=== PATIENT | male | born 1975 ===

== ENCOUNTER 2018-03-18 07:42 | Emergency (ER) | payer OTHER, BC ==
[2018-03-18 07:51] VITALS: BMI 26.5
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
--- NOTE | 2018-03-18 08:54 | CT ---
PROCEDURE: CT HEAD WITHOUT CONTRAST. HISTORY: headache COMPARISON: None available. TECHNIQUE: Axial computed tomography images were obtained through the head/brain without intravenous contrast. Radiation dose: Total exam DLP = 874 mGy-cm. This CT exam was performed using one or more of the following dose reduction techniques: Automated exposure control, adjustment of the mA and/or kV according to patient size, and/or use of iterative reconstruction technique. FINDINGS: HEMORRHAGE: No intracranial hemorrhage. BRAIN: No mass effect or edema. No atrophy or chronic microvascular ischemic changes. VENTRICLES: Unremarkable. No hydrocephalus. CALVARIUM: Unremarkable. PARANASAL SINUSES: Bilateral mild mucosal thickening -ethmoidal air cells was small left lateral sphenoid sinus recesses retention cyst MASTOID AIR CELLS: Unremarkable as visualized. No inflammatory changes. OTHER FINDINGS: None. IMPRESSION: No intracranial hemorrhage or mass effect. Mild ethmoidal sinus inflammatory changes. Small left sphenoid air cell recess retention cyst -6 mm
[2018-03-18 09:05] LABS: BASO % 0.4 % (0.0-2.0); EOS # 0.1 K/uL (0.0-0.7); EOS % 1.5 % (0.0-4.0); HEMOGLOBIN 16.2 g/dL (12.0-18.0); LYMPH # 1.5 K/uL (1.0-4.3); LYMPH % 29.2 % (20.0-40.0); MEAN CORPUSCULAR HEMOGLOBIN 30.7 pg (27.0-31.0); MEAN CORPUSCULAR HGB CONC 34.1 g/dL (33.0-37.0); MEAN PLATELET VOLUME 7.6 fl (7.2-11.7); MONO # 0.3 K/uL (0.0-0.8); MONO % 6.6 % (0.0-10.0); NEUT # 3.2 K/uL (1.8-7.0); NEUT % 62.3 % (50.0-75.0); NRBC % 0.1 % (0.0-0.0); RBC 5.29 Mil/uL (4.40-5.90); RED CELL DISTRIBUTION WIDTH 13.7 % (11.5-14.5); WHITE BLOOD COUNT 5.1 K/uL (4.8-10.8)
--- NOTE | 2018-03-18 09:09 | RAD ---
PROCEDURE: Left Hand Radiographs. HISTORY: pain COMPARISON: None. FINDINGS: BONES: Ossifications project -towards the ulnar aspect of the 1st metacarpal phalangeal joint - minimally displaced avulsive fracture fragments -donor site 1st proximal phalanx inferred. Overlying soft tissues between the 1st and 2nd digits altered -trauma here inferred. No history of trauma provided simply pain. Clinical correlation is essential. The avulsed fracture dominant fragment extends into the 1st metacarpal joint JOINTS: No significant appearing arthrosis. No dislocation. SOFT TISSUES: Normal. OTHER FINDINGS: None. IMPRESSION: Avulsed fracture fragments as detailed above. Comments: Study tagged for PA review. No preliminary impression available from ER at this time
--- NOTE | 2018-03-18 09:20 | RAD ---
PROCEDURE: Right Knee Radiographs. HISTORY: pain COMPARISON: None. FINDINGS: BONES: No fracture appreciated. Lateral patellar spurring JOINTS: Mild arthrosis lateral patellofemoral compartment. JOINT EFFUSION: None. OTHER FINDINGS: On sunrise view, lateral soft tissue mottled density -compatible with trauma IMPRESSION: No fracture or dislocation is suggested. Mild soft tissue swelling in the area of interest is noted.
[2018-03-18 09:23] LABS: PARTIAL THROMBOPLASTIN TIME 27.3 Seconds (25.6-37.1)
--- NOTE | 2018-03-18 09:24 | RAD ---
HISTORY: dyspnea COMPARISON: No prior. TECHNIQUE: Chest PA and lateral FINDINGS: LUNGS: Faint patchy opacity right upper lung zone noted and significance indeterminate small trace patchy infiltrate here not excluded. Summation of structures given the overlapping right 3rd and posterior right 5th ribs are another consideration with a crossing bronchovascular markings here. No comparisons available to assess stability if clinically indicated, noncontrast CT may elucidate. The left infrahilar bronchovascular markings appear top normal PLEURA: No significant pleural effusion identified. No pneumothorax apparent. CARDIOVASCULAR: Normal. OSSEOUS STRUCTURES: Mild thoracic spondylosis VISUALIZED UPPER ABDOMEN: Normal. OTHER FINDINGS: None. IMPRESSION: No definitive consolidation appreciated. Probable summation of soft tissues in the right upper lung zone ;however, subtle small parenchymal pulmonary pathology here cannot be excluded. To resolve, if clinically indicated, a noncontrast CT chest should suffice
[2018-03-18 09:25] LABS: BLOOD UREA NITROGEN 18 mg/dl (9-20); CALCIUM 9.2 mg/dL (8.4-10.2); GFR AFRICAN-AMERICAN > 60; GFR NON-AFRICAN AMERICAN > 60
[2018-03-18] MEDS ORDERED: Iohexol 300 100 ML IJ ONE (09:35)
--- NOTE | 2018-03-18 09:44 | CARD ---
APPROVED REPORT EKG Measurement Heart [id number] <Conclusion> Normal sinus rhythm Normal ECG
--- NOTE | 2018-03-18 09:50 | CT ---
PROCEDURE: CT Cervical Spine without contrast HISTORY: neck pain COMPARISON: None available. TECHNIQUE: Axial computed tomography images were obtained of the cervical spine without the use of intravenous contrast. Coronal and sagittal reformatted images were created and reviewed. Radiation dose: Total exam DLP = 423 mGy-cm. This CT exam was performed using one or more of the following dose reduction techniques: Automated exposure control, adjustment of the mA and/or kV according to patient size, and/or use of iterative reconstruction technique. FINDINGS: VERTEBRAE: Posterior central C4 vertebral body osteophyte encroaching on the ventral subarachnoid space. No gross thecal sac impingement appreciated no spinal stenosis DISCS/SPINAL CANAL/NEURAL FORAMINA: C4-C5 posterior disc bulging with central posterior osteophyte as above encroaching on the ventral subarachnoid space. No spinal stenosis here. C5-C6: Marked disc space narrowing, marked diffuse endplate osseous ridging and blending uncovertebral hypertrophic osteoarthrosis left greater than right. A separate 6 x 3 mm bony density -ossific debris or old fracture of a osteophyte here encroach on the left lateral recess is suggested (axial series 2, image 56, coronal series 601, image 34 and sagittal series 602, image 65. Right lateral to this, there is lobulated posterior disc margin -mixed posterior disc bulging with superimposed slightly left paracentral disc herniation/disc protrusion -adding to the encroachment on the spinal canal is noted. The separate bony density results in moderate to severe left lateral recess stenosis. The prominent disc margin/left paracentral disc herniation/ disc protrusion compatible with minimal-mild central stenosis. The endplate ridging at this level further encroaches on the left proximal foramen (axial series 2, image 55). There is prominent anterior spondylotic ridging at this level as well C6-7: Right uncovertebral hypertrophy endplate ridging encroaches on the right foramen (axial series 2, image 61). Mild concomitant right apophyseal joint hypertrophy noted At the cranial vertebral junction, the C1-2, C2-3 and C3-4 and the C 7-1 levels no additional pathology noted. No acute fractures suspect PARASPINAL SOFT TISSUES: Unremarkable. OTHER FINDINGS: None. IMPRESSION: Extensive pathologies -degenerative basis - centered to the C5-6 level as referenced above. This primarily resulting in left lateral recess and left proximal foraminal stenoses. No acute fractures noted
--- NOTE | 2018-03-18 10:06 | CT ---
PROCEDURE: CT Chest with contrast HISTORY: trauma COMPARISON: None. TECHNIQUE: Contiguous axial images were obtained through the chest with intravenous contrast enhancement. Sagittal and coronal reconstructions were performed. IV contrast: 95 cc of Omnipaque 300 followed by saline 40 cc Radiation dose (DLP): 449 mGy-cm. This CT exam was performed using one or more of the following dose reduction techniques: Automated exposure control, adjustment of the mA and/or kV according to patient size, and/or use of iterative reconstruction technique. FINDINGS: LUNGS: Clear lungs. Visualized airway clear. The prior indeterminate small opacity right upper lung zone the current chest x-ray is compatible with a prior technical summation of soft tissue appearance. On this clarifying CT no underlying pulmonary parenchymal pathology here or elsewhere suggested. MEDIASTINUM: Unremarkable thoracic aorta. No aneurysm or dissection. Normal sized heart. Main pulmonary artery unremarkable. No vascular congestion. No lymphadenopathy. PLEURA: No pleural fluid. No pneumothorax. BONES: No fracture. No destructive lesion. Inferior thoracic incidental spondylosis UPPER ABDOMEN: Grossly unremarkable. OTHER FINDINGS: None. IMPRESSION: No pulmonary pathology -as discussed above No fracture or pneumothorax seen.
[2018-03-18 11:32] VITALS: BP 144/65; PULSE 89; RESP 16; TEMP 97.6; O2SAT 96
== END 2018-03-18 11:32 | disposition home or self-care (01) ==
LOC: H.ER 07:42
DX: S29.9XXA Unspecified injury of thorax, initial encounter (principal); S89.91XA Unspecified injury of right lower leg, initial encounter; S62.501A Fracture of unspecified phalanx of right thumb, initial encounter for closed fracture; V29.88XA Motorcycle rider (driver) (passenger) injured in other specified transport accidents, initial encounter
CPT/HCPCS: 29125; 70450; 71046; 71260; 72125; 73130; 73564; 80048; 85025; 85610; 85730; 93005; 99285; Q9967